=== PATIENT | male | born 1975 | race African-American/Black ===

== ENCOUNTER 2017-06-28 06:33 | Emergency (ER) | payer BC ==
[2017-06-28 07:18] LABS: ADD MAN DIFF? NO
[2017-06-28 07:21] LABS: BASO # 0.1 x10^3/uL (0.0-0.2); BASO % 2 % (0-3); EOS # 0.1 x10^3/uL (0.0-0.7); EOS % 2 % (0-3); HEMATOCRIT 40.4 % (39.0-53.0); HEMOGLOBIN 13.8 g/dL (13.0-17.5); LYMPH # 1.5 x10^3/uL (1.0-4.8); LYMPH % 36 % (24-48); MEAN CORPUSCULAR HEMOGLOBIN 30 pg (25-35); MEAN CORPUSCULAR HGB CONC 34 g/dL (31-37); MEAN CORPUSCULAR VOLUME 87 fL (79-100); MONO # 0.3 x10^3/uL (0.0-1.1); MONO % 8 % (0-9); NEUT # 2.2 x10^3uL (1.8-7.7); NEUT % 53 % (31-73); PLATELET COUNT 180 x10^3/uL (140-400); RED BLOOD COUNT 4.63 x10^6/uL (4.30-5.70); RED CELL DISTRIBUTION WIDTH 13.1 % (11.5-14.5); WHITE BLOOD COUNT 4.2 x10^3/uL (4.0-11.0)
[2017-06-28] MEDS: KETOROLAC 30 MG/ML INJ. IV (07:26)
[2017-06-28] MEDS: LIDOCAINE (700MG/PATCH) PATCH. TD (07:27)
[2017-06-28 07:33] LABS: D-DIMER < 0.27 ug/mlFEU (0.00-0.50)
[2017-06-28 07:33] LABS: ANION GAP 10 (6-14); BLOOD UREA NITROGEN 12 mg/dL (8-26); CALCIUM 8.7 mg/dL (8.5-10.1); CARBON DIOXIDE 28 mmol/L (21-32); CHLORIDE 105 mmol/L (98-107); CREATININE 0.9 mg/dL (0.7-1.3); GFR 110.9; GLUCOSE 126 mg/dL (70-99); POTASSIUM 3.5 mmol/L (3.5-5.1); SODIUM 143 mmol/L (136-145)
[2017-06-28 07:42] LABS: TROPONINI < 0.017 ng/mL (0.000-0.055)
[2017-06-28 08:17] LABS: PLT ESTIMATE ADEQUATE (ADEQUATE)
== END 2017-06-28 08:08 | disposition home or self-care (01) ==
LOC: ER 06:33
DX: M54.9 Dorsalgia, unspecified (principal); M25.512 Pain in left shoulder; I10 Essential (primary) hypertension
CPT/HCPCS: 36415; 71046; 73030; 80048; 84484; 85025; 85379; 93005; 96374; 99285-25; J1885